=== PATIENT | male | born 2000 | race Hispanic/Latino ===

== ENCOUNTER → 2018-08-14 | Outpatient (CLI) | payer MEDICAID | END | disposition home or self-care (01) | LOC: RAH 15:35 | PROVIDERS: ATTEND Family Medicine | DX: M25.552 Pain in left hip (principal) | CPT/HCPCS: 73502 ==

== ENCOUNTER 2018-08-31 11:02 | Emergency (ER) | payer MEDICAID ==
[2018-08-31] MEDS ORDERED: IBUPROFEN 600 MG TABLET ONE (11:29)
== END 2018-08-31 12:23 | disposition home or self-care (01) ==
LOC: EDH 11:02
DX: R07.1 Chest pain on breathing (principal); F90.9 Attention-deficit hyperactivity disorder, unspecified type
CPT/HCPCS: 71046; 93005

== ENCOUNTER → 2019-01-14 | Outpatient (CLI) | payer MEDICAID | END | disposition home or self-care (01) | LOC: RAH 15:51 | PROVIDERS: ATTEND Family Medicine | DX: M25.572 Pain in left ankle and joints of left foot (principal) | CPT/HCPCS: 73610 ==

== ENCOUNTER 2020-07-07 21:12 | Emergency (ER) | payer MEDICAID | END 2020-07-07 22:23 | disposition home or self-care (01) | LOC: EDH 21:12 | DX: R55 Syncope and collapse (principal); F41.1 Generalized anxiety disorder; M79.652 Pain in left thigh; F90.9 Attention-deficit hyperactivity disorder, unspecified type | CPT/HCPCS: 93005 ==

== ENCOUNTER 2025-08-30 13:00 | Emergency (ER) | payer MEDICAID ==
[~2025-08-30] VITALS: Ht 160 cm; Wt 40.8 kg
[2025-08-30] MEDS: DiphenhydrAMINE HCL 25 MG/10 ML ELIXIR UDCUP PO STA (13:18)
[2025-08-30] MEDS ORDERED: HC2530O TP (14:02)
--- NOTE | 2025-08-30 14:03 | ERN ---
ED Note History of Present Illness Stated Complaint: RASH.ITCH BOTH ARMS Chief Complaint: Itching Time Seen by MD: 13:02 Time Seen by Midlevel: 13:05 Dictation: 24-year-old male coming in with complaints of a rash to bilateral upper forearms. Patient states it has been going on for the last couple of weeks. Denies having any recent illness . He has fever, nausea, vomiting, diarrhea. Denies any new perfumes, lotions, detergents. Allergies: Coded Allergies: No Known Drug Allergies (Unverified Allergy, Unknown, 08/30/25) Past Medical History Past Medical History: No Pertinent History Surgical History: None Review of System Dictation Constitutional: Negative for fever,chills, and weight loss Eyes: Negative for injury, pain,redness, and discharge ENT: Negative for injury,pain or swelling Cardiovascular: Negative for chest pain, palpitations, and edema Respiratory: Negative for shortness of breath, cough, and wheezing, Abdomen/GI: Negative for abdominal pain, nausea, vomiting, diarrhea, and constipation Back: Negative for injury and pain : Negative for injury, bleeding and discharge MS/Extremity: Negative for injury and deformity Skin: Monday for rash Neuro: Negative for headache, weakness, numbness, tingling, and seizure Psych: Negative for suicide ideation, homicidal ideation, and hallucinations Review of Systems: was completed Initial Vital Sign VS Vital Signs Date Time Temp Pulse Resp B/P (MAP) Pulse Ox O2 Delivery O2 Flow Rate FiO2 08/30/25 13:01 97.9 59 16 131/81 99 Room Air 08/30/25 13:11 0 21 Physical Exam Dictation General: awake, alert, NAD Head/Face: Normocephalic, atraumatic Eyes: PERRL, EOMI, vision at baseline ENT: oral cavity clear, TMs clear, no signs of infection Neck: Trachea midline, supple, no nuchal rigidity Cardiovascular: RRR, normal S1/S2, No MRGs, no JVD Respiratory: CTAB, no respiratory distress, No rales or wheezes Abdomen: Soft, non-tender, non-distended, normal bowel sounds, no guarding or rebound. Skin: Take your made it, erythematous plaques with silver white plaques noted to bilateral elbows. Tiny papular eruption on bilateral lower forearm, rough patient states it is itching. Was like consistent with a contact dermatitis. MS/Extremity: Pulses equal, no cyanosis, neurovascular intact, FROM Neuro: COAx4, GCS 15, strength 5/5, CN 2-12 intact, normal cerebellar exam, normal gait, Psych: Normal behavior, mood, and affect normal ED Course ED Course Orders Procedure Category Date Status Time Diphenhydramine Hcl PHA 08/30/25 Complete (Benadryl Elixir) 13:08 Dexamethasone 4mg/Ml PHA 08/30/25 Complete 1ml Vial (Dexametha 13:30 Current Medications Medications (Trade) Dose Ordered Sig/Jasmin Route PRN Reason Start Time Stop Time Status Last Admin Dose Admin Dexamethasone Sodium Phosphate (dexaMETHasone 4MG/ML 1ML VIAL) 6 mg ONCE ONCE IM 08/30/25 13:30 08/30/25 13:31 DC 08/30/25 13:17 Diphenhydramine HCl (BENAdryl ELIXIR) 50 mg ONCE STAT PO 08/30/25 13:08 08/30/25 13:12 DC 08/30/25 13:18 Vital Signs Date Time Temp Pulse Resp B/P (MAP) Pulse Ox O2 Delivery O2 Flow Rate FiO2 08/30/25 13:11 97.9 59 16 131/81 99 Room Air* 0 21 08/30/25 13:01 97.9 59 16 131/81 99 Room Air Medical Decision Making MDM MDM: 24-year-old male coming in with complaints of a rash to bilateral upper forearms. Patient states it has been going on for the last couple of weeks. De nies having any recent illness . He has fever, nausea, vomiting, diarrhea. Denies any new perfumes, lotions, detergents. On physical exam can be contact dermatitis and or fungal rash on the elbow. Patient states he works outside in [employer]. Differential diagnosis: Back dermatitis, hives, fungal, psoriasis Rationale: Tests considered and ordered secondary to shared decision making include: Previous outside records reviewed: Old ER visits. Risk of complication and/or morbidity or mortality of patient management: None Medications-Per medication reconciliation Need for hospitalization: Patient does not meet criteria for hospitalization. Need for emergency major/minor surgery: No There are no social concerns with this patient. Prescription drug management Prescriptions will include symptomatic care Patient's prior external medical records from other ER visits were reviewed by me as indicated. Prior testing and results from previous visits were reviewed. Prior tests were taken into account with medical decision making and resource utilization, independent historian/historians were used to obtain complete medical history. I independently interpreted the test that were performed, results were reviewed by me and considered findings on radiology if ordered. Medical management and examination interpretation discussions were had by me with other qualified healthcare professionals as indicated for the patient's care. DX & DISP Disposition: Discharge Departure Impression: Primary Impression: Contact dermatitis Condition: Stable Scripts Hydrocortisone (Hydrocortisone 2.5% Oint) 2.5 % Oint 1 APPL TP BID for 10 Days, #60 GM 0 Refills apply to affected area(s) Prov: ROGELIO HODGE CNP 08/30/25 Additional Instructions: The ointment is to be placed on bilateral elbows. Return to the hospital if you have any worsening symptoms otherwise any to follow up with the PCP and/or manager sales as your elbow could be a fungal infection or could be psoriasis. Referrals: DANE RIVERO DO (PCP) Time of Disposition: 14:01 I have reviewed the case, and I agree with, Diagnosis and Plan ROGELIO HODGE CNP Aug 30, 2025 14:03
[2025-08-30 14:15] VITALS: BP 128/74; PULSE 62; RESP 16; TEMP 97.9; O2SAT 99
== END 2025-08-30 14:16 | disposition home or self-care (01) ==
LOC: EDH 13:00
DX: L25.9 Unspecified contact dermatitis, unspecified cause (principal)
CPT/HCPCS: 99283; 96372; J1100